=== PATIENT | female | born 1970 | race Caucasian/White ===

== ENCOUNTER 2017-06-27 21:27 | Inpatient (IN) | payer OTHER ==
[~2017-06-27] VITALS: Ht 165.1 cm; Wt 130.6 kg
[~2017-06-27 21:27] MED LIST: ASPI-1052 PO; ATEN25TA7 PO; COZ50 PO; ISOS10TA9 PO; METO25TA PO; OMEP40EC1 PO; PANT40EC PO; SIMV20TA1 PO
[2017-06-27 21:35] VITALS: BP 128/67
--- NOTE | 2017-06-27 21:43 | NUR ---
PT TAKEN TO BED 4
--- NOTE | 2017-06-27 21:45 | NUR ---
46/F CAME IN W C/O 03/14 RLQ PAIN STARTED SINCE 429 TODAY, ACUTE ONSET, INTERMITTENT AND PROGRESIVELY WORSENING. PT DENIES FEVER, N/V/D, PT REPORTS LAST ATE 15 MINS AGO. BS ACTIVE X4, SOFT AND ROUND ABD, +TENDERNESS TO RLQ. DENIES SOB/CP AT THIS TIME. SURGICAL HX: CSEC PMH: FATTY LIVER, DM, ATHEROSCLEROSIS, HTN.
--- NOTE | 2017-06-27 21:56 | NUR ---
Dr. Combs evaluating patient at bedside.
[2017-06-27] MEDS ORDERED: MORPHINE SULFATE 4 MG/ML SYR IVP ONE (22:25)
[2017-06-27 22:27] LABS: HEMATOCRIT 38.6 % (36-48); HEMOGLOBIN 12.7 g/dL (12.0-16.0); MEAN CORPUSCULAR HEMOGLOBIN 30 pg (27-31); MEAN CORPUSCULAR HGB CONC 33 g/dL (33-37); MEAN CORPUSCULAR VOLUME 91 fL (80-94); PLATELET COUNT (AUTO) 275 K/uL (140-450); RED BLOOD CELL COUNT(AUTO) 4.27 MIL/uL (4.20-5.40); RED CELL DISTRIBUTION WIDTH 14.9 % (11.6-13.7); WHITE BLOOD COUNT (AUTO) 12.4 K/uL (4.8-10.8)
[2017-06-27] MEDS ORDERED: ONDANSETRON 4 MG/2 ML VIAL IVP ONE (22:40)
[2017-06-27 22:45] LABS: ANION GAP 12.5 (8-16); CARBON DIOXIDE 29.4 mmol/L (21-32); CREATININE 0.9 mg/dL (0.6-1.3); POTASSIUM 3.9 mmol/L (3.5-5.1)
[2017-06-27 22:45] LABS: APPEARANCE,URINE CLEAR (CLEAR); BILIRUBIN,URINE NEGATIVE (NEGATIVE); BLOOD, URINE NEGATIVE (NEGATIVE); COLOR,URINE YELLOW (YELLOW); LEUKOCYTE ESTERASE ,URINE NEGATIVE (NEGATIVE); NITRITE, URINE NEGATIVE (NEGATIVE); UGLUCOSE NEGATIVE (NEGATIVE)
[2017-06-27 22:51] LABS: ALBUMIN 3.5 g/dL (3.4-5.0); TOTAL BILIRUBIN 0.5 mg/dL (0.0-1.0)
[2017-06-27 22:59] LABS: EOSINOPHILS % (MANUAL) 4 % (0-4); LYMPHOCYTES % (MANUAL) 22 % (20-46); MONOCYTES % (MANUAL) 8 % (5-12)
[2017-06-27 23:38] LABS: RBC,URINE 0-5 (RARE) /HPF (0-5); WBC,URINE 0-5 (RARE) /HPF (0-5)
[2017-06-27] MEDS ORDERED: NACL 0.9% 1,000 ML IV ONE (23:45)
[2017-06-28] MEDS: NACL 0.9% 1,000 ML IV SCH ×3 (00:08→12:26)
[2017-06-28] MEDS ORDERED: MORPHINE SULFATE 2 MG/ML SYR IVP PRN (03:20)
[2017-06-28] MEDS ORDERED: HYDROmorphone 1 MG/ML AMP IVP PRN (03:20)
[2017-06-28] MEDS ORDERED: NACL 0.9% 1,000 ML IV ONE (03:20)
[2017-06-28] MEDS ORDERED: cefTRIAXone 1,000 MG VIAL ONE (03:32)
--- NOTE | 2017-06-28 03:54 | NUR ---
Patient will be admitted to care of DR BALLARD. Admited to MS. Will go to room 106B. Belongings list completed. Report to TYREL MUELLER. PT STABLE DURING TRANSPORT, TRANSPORTED VIA WHEELCHAIR. IV SL. TYREL MUELLER INFORMED TO INFUSE 1000ML NS @100ML/HR PER ER MD CUEVAS ORDER.
--- NOTE | 2017-06-28 04:15 | NUR ---
ADMITTED PT FROM ER VIA REJI. AAOX4. IV TO LEFT AC #20G, PATEN AND INTACT. NO C/O PAIN AT THIS TIME. DISCUSSED PLAN OF CARE. PT VERBALIZE UNDERSTANDING. ORIENTED PT TO ROOM. CALL LIGHT WITHIN REACH. WILL CONTINUE TO MONITOR.
--- NOTE | 2017-06-28 04:17 | NUR ---
RECEIVED ORDER FROM DR. ALCOCER. ORDERS CARRIED OUT.
[2017-06-28 04:20] VITALS: BP 105/70
[2017-06-28] MEDS: metroNIDAZOLE 500 MG/NS PREMIX 100 ML IV SCH ×3 (05:46→17:44)
[2017-06-28 06:44] LABS: BASOPHILS # (AUTO) 0.4 K/uL (0.00-0.22); BASOPHILS % (AUTO) 3.7 % (0.0-2.0); EOSINOPHILS # (AUTO) 0.1 K/uL (0-0.4); EOSINOPHILS % (AUTO) 1.3 % (0.0-4.0); HEMATOCRIT 35.8 % (36-48); HEMOGLOBIN 11.8 g/dL (12.0-16.0); LYMPHOCYTES # (AUTO) 2.1 K/uL (2.5-16.5); LYMPHOCYTES % (AUTO) 19.4 % (20.5-51.1); MEAN CORPUSCULAR HEMOGLOBIN 30 pg (27-31); MEAN CORPUSCULAR HGB CONC 33 g/dL (33-37); MEAN CORPUSCULAR VOLUME 91 fL (80-94); MONOCYTES # (AUTO) 0.9 K/uL (0.8-1.0); MONOCYTES % (AUTO) 8.5 % (1.7-9.3); NEUTROPHILS # (AUTO) 7.3 K/uL (1.8-7.7); NEUTROPHILS % (AUTO) 67.1 % (42.2-75.2); PLATELET COUNT (AUTO) 236 K/uL (140-450); RED BLOOD CELL COUNT(AUTO) 3.93 MIL/uL (4.20-5.40); RED CELL DISTRIBUTION WIDTH 14.9 % (11.6-13.7); WHITE BLOOD COUNT (AUTO) 10.8 K/uL (4.8-10.8)
--- NOTE | 2017-06-28 06:45 | NUR ---
DR. ALCOCER CAME TO SEE PT. ORDERED RIGHT LOWER QUADRANT ULTRASOUND.
[2017-06-28 07:13] LABS: ANION GAP 10.2 (8-16); CARBON DIOXIDE 25.7 mmol/L (21-32); CREATININE 0.8 mg/dL (0.6-1.3); POTASSIUM 3.9 mmol/L (3.5-5.1); TOTAL BILIRUBIN 0.3 mg/dL (0.0-1.0)
--- NOTE | 2017-06-28 07:20 | NUR ---
ENDORSED PT TO DAY SHIFT NURSE. PT IN STABLE CONDITION.
--- NOTE | 2017-06-28 07:21 | NUR ---
RECEIVED REPORT FROM THE NETWORK OPERATIONS SPECIALIST NURSE AT BEDSIDE FOR CONTINUITY OF CARE. PT IS AWAKE AND ORIENTED. INTRODUCED MYSELF AND UPDATED THE BOARD. V/S WITHIN NORMAL RANGE. PT DENIES ANY PAIN AT THIS TIME. PT HAS PSORIASIS AND EXTREMITIES AND ABD. IV ON L AC 2O G NS 100ML. PER NETWORK OPERATIONS SPECIALIST, DR ALCOCER WS HERE SAW RESULTS TO US ABD AND CT SCAN OF ABD/PEL. REQUESTED ANOTHER RLQ US. THIS MORNING RADIOLOGY CALLED TO VERIFY ORDER. PER RADIOLOGIST, NO NEED FOR ANOTHER US. GAVE NUMBER TO RADIOLOGIST TO CALL DR. ALCOCER FOR VERIFICATION OF ORDERS. WILL CONTINUE TO MONITOR PT.
[2017-06-28 08:00] VITALS: BP 121/59
--- NOTE | 2017-06-28 09:00 | NUR ---
RX CALLED QUESTIONING ORDERS FOR ABX FROM DR. ALCOCER AND DR. BALLARD. BOTH ANCEF AND ZOSYN WAS ORDERED ADDITION TO FLAGYL. PER PHARMACY, ANCEF AND ZOSYN COVERAGE IS SAME. PAGED DR. BALLARD. DR. METCALF CALLED. PER , CANCEL ANCEF AND JUST CONTINUE W/ FLAGYL AND ZOSYN. PUT IN ORDERS FOR .
--- NOTE | 2017-06-28 12:15 | NUR ---
DR. METCALF HERE TO SEE PT.
[2017-06-28] MEDS: PIPER/TAZO 3.375GM/D5W PREMIX 50 ML IV SCH ×2 (12:21→17:44)
[2017-06-28 16:00] VITALS: BP 121/46
--- NOTE | 2017-06-28 16:44 | NUR ---
PT WONDERING WHEN U/S WILL BE DONE. CALLED U/S. THEY ARE ALL IN ICU W/ STEMI. WILL NOTIFIED PT. FAMILY VISITING. NO SIGNS OF DISTRESS. WILL CONTINUE TO MONITOR PT.
[2017-06-28] MEDS: ONDANSETRON 4 MG/2 ML VIAL IVP PRN (17:48)
--- NOTE | 2017-06-28 19:20 | NUR ---
ENDORSED PT TO THE MUFFLE WORKER NURSE AT BEDSIDE FOR CONTINUITY OF CARE. PT IS IN STABLE CONDITION.
--- NOTE | 2017-06-28 19:21 | NUR ---
PATIENT IS CURRENTLY RESTING IN BED AWAKE ALERT AND ORIENTED PATIENT STATES,"I FEEL A LITTLE NAUSEATED BUT THE RN NURSE IN THE MORNING JUST GAVE ME SOME MEDICATION TO CALM THE NAUSEA." PATIENT CONTINUES TO BE NPO AND IVF INFUSING WELL IV SITE PATENT.FAMILY AT BEDSIDE WITH HER AT THIS TIME NEEDS MET CALL LIGHT WITHIN REACH WILL CONTINUE TO MONITOR.
[2017-06-28 20:00] VITALS: BP 116/73
[2017-06-28] MEDS: ISOSORBIDE DINITRATE 10 MG TAB PO SCH (20:30)
[2017-06-28] MEDS: SIMVASTATIN 20 MG TAB PO SCH (20:30)
--- NOTE | 2017-06-28 20:30 | NUR ---
I HELD PATIENT BLOOD PRESSURE MEDS TONIGHT B/P IS DECREASED LATEST BLOOD PRESSURE 98/40 HR 82 PATIENT VERBALIZES UNDERSTANDING.
--- NOTE | 2017-06-28 20:35 | NUR ---
PATIENT IS WONDERING IF SHE IS HAVING ANOTHER ULTRASOUND DONE TONIGHT I WILL CHECK THE ORDER AND I WILL CHECK WITH RADIOLOGY AND MD ALCOCER.
--- NOTE | 2017-06-28 20:36 | NUR ---
I CALLED RADIOLOGY AND I SPOKE WITH LUIS AND I EXPLAINED TO HER THAT PATIENT HAS AN ORDER FOR ABD ULTRASOUND TO CHECK HER RIGHT LOWER QUADRANT AND I WAS TOLD IN REPORT BY RN [facility] NURSE THAT WANTED US ABDOMEN TO BE DONE AGAIN BUT HE WANTS TO CHECK SPECIFIC AREA OF THE ABDOMEN WHICH IS THE RIGHT LOWER QUADRANT.ANESTHESIOLOGY TECHNOLOGIST LUIS EXPLAINED TO ME THAT PATIENT ALREADY HAD DONE US ABDOMEN COMPLETE WHICH THEY CHECK ALL THE ABDOMINAL AREA INCLUDING THE RLQ OF THE ABDOMEN AND PLUS PATIENT ALSO HAD CT ABD AND PELVIS DONE ALREADY SHE SAID THERE IS NO NEED TO RECHECK AGAIN.I TOLD LUIS THAT I WILL EXPLAIN TO MD ALCOCER.
--- NOTE | 2017-06-28 20:40 | NUR ---
I CALLED MD ALCOCER HE ANSWERED RIGHT AWAY AND I EXPLAINED TO MD THAT STORE CLERK TOLD ME THAT PATIENT HAD ALREADY US ABDOMEN COMPLETE THAT SCANS THE ENTIRE ABDOMEN AND SHE ALSO HAD CT ABD AND PELVIS AND ACCORDING TO THE RADIOLOGIST PATIENT DOESN'T NEED TO HAVE THE US ABDOMEN TO CHECK FOR RLQ ABD REPEATED.MD ALCOCER AWARE AND SAID THAT'S FINE IF SHE DOESN'T NEED IT HE SAID THEN DON'T DO IT.MD ALCOCER SAID THEN JUST CONTINUE TO OBSERVE THE PATIENT TONIGHT.I ALSO INFORMED MD ALCOCER THAT PATIENT CONTINUES TO BE NAUSEATED AND MD ALCOCER SAID TO CONTINUE TO KEEP THE PATIENT NPO.
--- NOTE | 2017-06-28 20:41 | NUR ---
PATIENT WAS MADE AWARE THAT SHE DOESN'T NEED TO HAVE A REPEATED US ABDOMEN AND MD ALCOCER IS AWARE BUT SHE WILL CONTINUE TO BE NPO SHE CANNOT DRINK OR EAT ANYTHING FOR NOW BUT I HAVE TO OBSERVE HER ORDERED BY MD ALCOCER. PATIENT VERBALIZES UNDERSTANDING.PATIENT IS AWARE THAT WE ARE GIVING HER ANTIBIOTICS AND ALSO CHECKING HER VITAL SIGNS AND IF SHE FEELS NAUSEATED AND ITS TIME WE CAN GIVE HER SOME ZOFRAN ANTIEMETIC INDICATED PATIENT VERBALIZES UNDERSTANDING.
--- NOTE | 2017-06-28 22:30 | NUR ---
PATIENT IS CURRENTLY ASLEEP SNORING.WILL CONTINUE TO MONITOR CALL LIGHT WITHIN REACH.
[2017-06-29] MEDS: PIPER/TAZO 3.375GM/D5W PREMIX 50 ML IV SCH ×4 (00:10→18:28)
[2017-06-29 00:33] VITALS: BP 134/88
--- NOTE | 2017-06-29 00:33 | NUR ---
PATIENT IS CURRENTLY RESTING IN BED SLEEPING NO PAIN OR DISCOMFORT NOTED NO N/V NOTED.IVF INFUSING WELL IV SITE PATENT ERVIN FORTUNE WILL GIVE ANTIBIOTICS ORDERED.CALL LIGHT WITHIN REACH.
[2017-06-29] MEDS: metroNIDAZOLE 500 MG/NS PREMIX 100 ML IV SCH ×4 (00:41→18:29)
--- NOTE | 2017-06-29 03:05 | NUR ---
PATIENT IS CURRENTLY RESTING IN BED IN NO DISTRESS WILL CONTINUE TO MONITOR.IVF INFUSING WELL IV SITE PATENT.CALL LIGHT WITHIN REACH.
--- NOTE | 2017-06-29 05:02 | NUR ---
PATIENT CONTINUES TO SLEEP COMFORTABLY IN BED NO DISTRESS IVF INFUSING WELL IV SITE PATENT WILL CONTINUE TO MONITOR.
--- NOTE | 2017-06-29 07:40 | NUR ---
PT RECEIVED IN BED AWAKE ALERT AND ORIENTED X4. PT IS ABLE TO MAKE NEEDS KNOWN WELL AND IS RESPONSIVE TO VERBAL COMMAND APPROPRIATELY. PT DENIES ANY ABD PAIN AT PRESENT. NO RESP DISTRESS OR N/V. IVF INFUSING ORDERED. PT IS NPO AT THIS TIME. V/S STABLE.
--- NOTE | 2017-06-29 07:44 | NUR ---
PATIENT STABLE REPORT ENDORSED TO ERVIN OROZCO AT BEDSIDE HE WILL RESUME CARE OF THE PATIENT. Addendum: 06/29/17 at 0746 by Alison Bhatia LVN REPORT ENDORSED TO ERVIN OROZCO.
--- NOTE | 2017-06-29 08:07 | NUR ---
PATIENT HAS BEEN SCREENED AND CATEGORIZED HIGH NUTRITION RISK. PATIENT WILL BE SEEN WITHIN 1-2 DAYS OF ADMISSION. 06/28/17 - 06/29/17 RAUL NAVA MBA, RD
[2017-06-29 08:24] VITALS: BP 138/78
[2017-06-29] MEDS ORDERED: PANTOPRAZOLE 40 MG TABEC PO SCH (09:00)
[2017-06-29] MEDS ORDERED: ASPIRIN 325 MG TABEC PO SCH (09:00)
[2017-06-29] MEDS ORDERED: METOPROLOL 25 MG TAB PO SCH (09:00)
[2017-06-29] MEDS: NACL 0.9% 1,000 ML IV SCH ×2 (09:18→19:18)
--- NOTE | 2017-06-29 09:34 | NUR ---
06/29/17 RD INITIAL ASSESSMENT COMPLETED PLEASE REFER TO NUTRITION ASSESSMENT UNDER CARE ACTIVITY FOR ESTIMATED NUTRITIONAL NEEDS. RD RECOMMENDATIONS: 1- RECOMMEND CONTINUE NPO DIET. 2- WHEN MEDICALLY CLEARED, SUGGEST 75G CCHO CARDIAC DIET 3- EDUCATE PT ON DIET WHEN ORDERED BY MD &/OR ON FOLLOW UP 4- F/U 3-5 DAYS; MODERATE RISK RAUL NUR MBA, RD
[2017-06-29] MEDS: ISOSORBIDE DINITRATE 10 MG TAB PO SCH ×2 (10:02→21:00)
--- NOTE | 2017-06-29 13:00 | NUR ---
PT UP SITTING IN BED COMFORTABLY. COMPLAINT OF HEADACHE DUE TO ONE OF THE AM MEDS. ORFERS FOR TYLENOL OBTAINED FROM DR METCALF AND GIVEN AT 1252. PT REMAINS NPO. NO ACUTE DISTRESS OR ANY STATUS CHANGES NOTED. PT APPEARS TO BE IN GOOD CONDITION.
[2017-06-29] MEDS: ONDANSETRON 4 MG/2 ML VIAL IVP PRN (13:22)
[2017-06-29] MEDS ORDERED: ACETAMINOPHEN 650 MG/20.3 ML UDC PO PRN (13:25)
[2017-06-29 15:50] LABS: BASOPHILS # (AUTO) 0.1 K/uL (0.00-0.22); BASOPHILS % (AUTO) 1.2 % (0.0-2.0); EOSINOPHILS # (AUTO) 0.1 K/uL (0-0.4); EOSINOPHILS % (AUTO) 0.8 % (0.0-4.0); LYMPHOCYTES # (AUTO) 1.8 K/uL (2.5-16.5); LYMPHOCYTES % (AUTO) 14.3 % (20.5-51.1); MEAN CORPUSCULAR HEMOGLOBIN 30 pg (27-31); MEAN CORPUSCULAR HGB CONC 33 g/dL (33-37); MEAN CORPUSCULAR VOLUME 89 fL (80-94); MONOCYTES # (AUTO) 0.5 K/uL (0.8-1.0); MONOCYTES % (AUTO) 4.4 % (1.7-9.3); NEUTROPHILS # (AUTO) 9.8 K/uL (1.8-7.7); NEUTROPHILS % (AUTO) 79.3 % (42.2-75.2); PLATELET COUNT (AUTO) 271 K/uL (140-450); RED BLOOD CELL COUNT(AUTO) 4.06 MIL/uL (4.20-5.40); RED CELL DISTRIBUTION WIDTH 14.6 % (11.6-13.7); WHITE BLOOD COUNT (AUTO) 12.3 K/uL (4.8-10.8)
[2017-06-29 16:17] LABS: ALBUMIN 3.2 g/dL (3.4-5.0); ANION GAP 9.8 (8-16); CARBON DIOXIDE 29.9 mmol/L (21-32); CREATININE 0.8 mg/dL (0.6-1.3); POTASSIUM 3.7 mmol/L (3.5-5.1)
[2017-06-29 16:26] VITALS: BP 126/78
--- NOTE | 2017-06-29 16:35 | NUR ---
PT IN BED TALKING TO SOME VISITORS AT THE BED SITE. NO PAIN OR SOB. V/S STABLE.
--- NOTE | 2017-06-29 19:50 | NUR ---
PATIENT IS AWARE THAT SHE WILL BE GOING HOME TONIGHT AND IV SALINE LOCK HAS BEEN DISCONTINUED. FAMILY AT BEDSIDE.
[2017-06-29 20:00] VITALS: BP 126/64
--- NOTE | 2017-06-29 20:00 | NUR ---
Patient's Plan of Care was discussed and reviewed with MEDICAL DELIVERY DRIVER: JOSH PRUETT
--- NOTE | 2017-06-29 20:46 | NUR ---
I SPOKE WITH Jessica STRINGER AND I ASKED HER IF SHE WOULD LIKE TO CONTINUE PATIENTS HOME MEDS THEN Jessica STRINGER SAID YES SURE BUT I WAS READING PATIENT'S HOME MED LIST TO HER.Jessica STRINGER SAID I WILL DO THE RECONCILIATION IN MY COMPUTER GIVE ME A FEW MINUTES.NO NEW ORDERS.
[2017-06-29] MEDS: SIMVASTATIN 20 MG TAB PO SCH (21:07)
--- NOTE | 2017-06-29 22:08 | NUR ---
PATIENT WAS GIVEN HER DISCHARGE INSTRUCTIONS AND PATIENT VERBALIZES UNDERSTANDING.ID BANDS WERE REMOVED AND DISCARDED APPROPRIATELY AND FAMILY WILL BE TAKING THE PATIENT HOME.PATIENT WHEELED OUT IN WHEEL CHAIR TO CAR BY DALE MARTÍNEZ.
--- NOTE | 2017-07-02 15:07 | NUR ---
CM NOTE ER DR'S NOTES, H&P, PROGRESS NOTES, DISCHARGE SUMMARY FAXED TO [facility] [phone] CM DEAN PH# [phone] CM NAVA PH# [phone]
== END 2017-06-29 22:10 | disposition home or self-care (01) | DRG 351 ==
LOC: MED 21:27 → MTU 06-28 03:24
PROVIDERS: ADMIT Hospitalist; ATTEND Hospitalist
DX: M25.559 Pain in unspecified hip (principal); I10 Essential (primary) hypertension; Z68.42 Body mass index [BMI] 45.0-49.9, adult; E11.9 Type 2 diabetes mellitus without complications; D72.829 Elevated white blood cell count, unspecified; I25.10 Atherosclerotic heart disease of native coronary artery without angina pectoris; L40.9 Psoriasis, unspecified; E66.01 Morbid (severe) obesity due to excess calories; Z98.891 History of uterine scar from previous surgery; Z79.899 Other long term (current) drug therapy
CPT/HCPCS: 36415; 76700; 76705; 80053; 81001; 81025; 82150; 82948; 83605; 83690; 84703; 85025; 87040; 87081; 87086; 96374; 96375; 99285; J0696; J1170; J2270; J2405; J2543; J3490; J7030; J7060; Q0092; Q9967

== ENCOUNTER 2017-10-11 00:05 | Emergency (ER) | payer OTHER ==
[~2017-10-11] VITALS: Ht 165.1 cm; Wt 130.2 kg
[~2017-10-11 00:05] MED LIST changes: -ATEN25TA7 PO; -PANT40EC PO
[2017-10-11 00:19] VITALS: BP 129/71
--- NOTE | 2017-10-11 00:27 | NUR ---
PT.AMBULATED TO ER [facility]
--- NOTE | 2017-10-11 00:33 | NUR ---
FLU AND STREP THROAT SWAB COLLECTED.
--- NOTE | 2017-10-11 00:54 | NUR ---
PT EVAL BY TANNER CALLAHAN
[2017-10-11] MEDS ORDERED: methylPREDNISolone SS 125 MG/2 ML VIAL IM ONE (01:10)
--- NOTE | 2017-10-11 01:32 | NUR ---
47Y F BIB FAMILY C/O DIFFICULTY BREATHING X 3 DAYS. PT. STATES COUGH AND COULDN'T CATCH BREATH, NOT RELIEVED BY INHALER. HX. HTN, DM, HEART DISEASE (PT. STATES ARTERY VALVE CLOG)
--- NOTE | 2017-10-11 01:49 | NUR ---
PT LEFT FOR RADIOLOGY WITH LACE FINISHERMALENA WATKINS
--- NOTE | 2017-10-11 02:03 | NUR ---
PT RETURN FROM RADIOLOGY
[2017-10-11 02:51] VITALS: BP 122/69
--- NOTE | 2017-10-11 02:51 | NUR ---
Patient discharged with v/s stable. Written and verbal after care instructions given and explained. Patient alert, oriented and verbalized understanding of instructions. Ambulatory with steady gait. All questions addressed prior to discharge. ID band removed. Patient advised to follow up with PMD. Rx of PREDNISONE 50MG given. Patient educated on indication of medication including possible reaction and side effects. Opportunity to ask questions provided and answered.
== END 2017-10-11 02:51 | disposition home or self-care (01) ==
LOC: MED 00:05
DX: J04.0 Acute laryngitis (principal); J45.909 Unspecified asthma, uncomplicated; E11.9 Type 2 diabetes mellitus without complications; I10 Essential (primary) hypertension
CPT/HCPCS: 36415; 70360; 70490; 71045; 87081; 87804; 96372; 99285; J2930

== ENCOUNTER 2017-11-04 14:30 | Emergency (ER) | payer OTHER ==
[~2017-11-04] VITALS: Ht 167.6 cm; Wt 131.1 kg
[2017-11-04 14:42] VITALS: BP 128/75
[2017-11-04] MEDS ORDERED: METF500T PO (14:55)
[2017-11-04] MEDS ORDERED: ATEN25TA7 PO (14:55)
[2017-11-04] MEDS ORDERED: MECLIZINE 25 MG TAB PO ONE (15:20)
[2017-11-04 17:20] VITALS: BP 116/70
== END 2017-11-04 17:24 | disposition home or self-care (01) ==
LOC: MED 14:30
DX: H81.10 Benign paroxysmal vertigo, unspecified ear (principal); J45.909 Unspecified asthma, uncomplicated; E11.9 Type 2 diabetes mellitus without complications; I10 Essential (primary) hypertension; Z79.84 Long term (current) use of oral hypoglycemic drugs; Z79.899 Other long term (current) drug therapy
CPT/HCPCS: 70450; 81025; 82948; 93005; 99284; J8597

== ENCOUNTER 2019-08-26 10:51 | Emergency (ER) | payer OTHER ==
[~2019-08-26] VITALS: Ht 165.1 cm; Wt 129.3 kg
[~2019-08-26 10:51] MED LIST changes: +ATEN25TA7 PO; -COZ50 PO; +METF500T PO; -METO25TA PO; -OMEP40EC1 PO; +OMEP40EC24 PO
[2019-08-26 11:02] VITALS: BP 128/77
--- NOTE | 2019-08-26 11:05 | NUR ---
TO ED03, REPORT TO ERVIN ESPINOZA
--- NOTE | 2019-08-26 11:15 | NUR ---
PT C/O RT SIDED THROBBING HEADACHE WITH VISION CHANGES, DIZZINESS SINCE YESTERDAY. DENIES N/V OR SOB. PATIENT STATES PAIN OF 8/10 AT THIS TIME; VSS; PATIENT POSITIONED FOR COMFORT; HOB ELEVATED; BEDRAILS UP X1; BED DOWN. ER MD MADE AWARE OF PT STATUS. PT IS ON MONITOR AND WILL CONTINUE MONITOR HER VITAL SIGNS.
[2019-08-26] MEDS ORDERED: NACL 0.9% 500 ML IV ONE (11:45)
[2019-08-26] MEDS ORDERED: diphenhydrAMINE 50 MG/ML VIAL IVP ONE (11:45)
[2019-08-26] MEDS ORDERED: MECLIZINE 25 MG TAB PO ONE (11:45)
[2019-08-26] MEDS ORDERED: ONDANSETRON 4 MG/2 ML VIAL IVP ONE (11:45)
[2019-08-26] MEDS ORDERED: LORazepam 2 MG/ML VIAL IVP ONE (11:45)
[2019-08-26 12:43] LABS: BASOPHILS # (AUTO) 0.1 K/uL (0.00-0.22); BASOPHILS % (AUTO) 0.8 % (0.0-2.0); EOSINOPHILS # (AUTO) 0.1 K/uL (0-0.4); EOSINOPHILS % (AUTO) 1.3 % (0.0-4.0); HEMATOCRIT 40.3 % (36-48); HEMOGLOBIN 12.9 g/dL (12.0-16.0); LYMPHOCYTES # (AUTO) 2.7 K/uL (2.5-16.5); LYMPHOCYTES % (AUTO) 24.3 % (20.5-51.1); MEAN CORPUSCULAR HEMOGLOBIN 30 pg (27-31); MEAN CORPUSCULAR HGB CONC 32 g/dL (33-37); MONOCYTES # (AUTO) 0.8 K/uL (0.8-1.0); NEUTROPHILS # (AUTO) 7.4 K/uL (1.8-7.7); NEUTROPHILS % (AUTO) 66.6 % (42.2-75.2); PLATELET COUNT (AUTO) 289 K/uL (140-450); RED BLOOD CELL COUNT(AUTO) 4.33 MIL/uL (4.20-5.40); RED CELL DISTRIBUTION WIDTH 14.5 % (11.6-13.7); WHITE BLOOD COUNT (AUTO) 11.1 K/uL (4.8-10.8)
--- NOTE | 2019-08-26 12:54 | NUR ---
pt is resting in the bed. family member is at bedside. pt is on monitor and will continue to monitoring her vital signs.
[2019-08-26 13:13] LABS: ANION GAP 14.2 (8-16); CARBON DIOXIDE 26.6 mmol/L (21-32); CREATININE 0.7 mg/dL (0.6-1.3); POTASSIUM 3.8 mmol/L (3.5-5.1)
[2019-08-26 13:19] LABS: ALBUMIN 3.6 g/dL (3.4-5.0); TOTAL BILIRUBIN 0.4 mg/dL (0.0-1.0)
[2019-08-26] MEDS ORDERED: KETOROLAC 30 MG/ML VIAL IVP ONE (14:05)
[2019-08-26 14:42] VITALS: BP 115/64
--- NOTE | 2019-08-26 14:42 | NUR ---
Patient discharged with v/s stable. Written and verbal after care instructions given and explained. Patient alert, oriented and verbalized understanding of instructions. Ambulatory with steady gait. All questions addressed prior to discharge. ID band removed. Patient advised to follow up with PMD. Rx of ANTIVERT given, OTC BENADRYL INSTRUCTED TO GET. Patient educated on indication of medication including possible reaction and side effects. Opportunity to ask questions provided and answered.
== END 2019-08-26 14:42 | disposition home or self-care (01) ==
LOC: MED 10:51
DX: H81.10 Benign paroxysmal vertigo, unspecified ear (principal); J45.909 Unspecified asthma, uncomplicated; I10 Essential (primary) hypertension; Z86.79 Personal history of other diseases of the circulatory system; Z79.899 Other long term (current) drug therapy; Z79.84 Long term (current) use of oral hypoglycemic drugs
CPT/HCPCS: 36415; 70450; 80053; 82948; 84484; 85025; 96361; 96374; 96375; 99284; J1200; J1885; J2060; J2405; J7030; J8597

== ENCOUNTER 2020-07-08 07:24 | Emergency (ER) | payer OTHER ==
[~2020-07-08] VITALS: Ht 165.1 cm; Wt 130.6 kg
[2020-07-08 07:34] VITALS: BP 114/70
--- NOTE | 2020-07-08 07:42 | NUR ---
PT AMBULATED TO BED 8.
--- NOTE | 2020-07-08 07:49 | NUR ---
Patient being evaluated by DR CARLOS at bedside.
--- NOTE | 2020-07-08 07:56 | NUR ---
NO NURSING INTERVENTIONS NEEDED.
[2020-07-08 08:11] VITALS: BP 114/70
--- NOTE | 2020-07-08 08:11 | NUR ---
Patient discharged with v/s stable. Written and verbal after care instructions given and explained. Patient alert, oriented and verbalized understanding of instructions. Ambulatory with steady gait. All questions addressed prior to discharge. ID band removed. Patient advised to follow up with PMD. Rx of PREDNISONE, CORICIDIN given. Patient educated on indication of medication including possible reaction and side effects. Opportunity to ask questions provided and answered.
== END 2020-07-08 08:11 | disposition home or self-care (01) ==
LOC: MED 07:24
DX: J06.9 Acute upper respiratory infection, unspecified (principal); R05 Cough; E11.9 Type 2 diabetes mellitus without complications; I10 Essential (primary) hypertension; I51.89 Other ill-defined heart diseases; J45.909 Unspecified asthma, uncomplicated; Z98.890 Other specified postprocedural states; Z79.899 Other long term (current) drug therapy
CPT/HCPCS: 99283

== ENCOUNTER 2023-02-08 15:53 | Emergency (ER) | payer OTHER ==
[~2023-02-08] VITALS: Ht 167.6 cm; Wt 110.7 kg
[~2023-02-08 15:53] MED LIST changes: +METF-346 PO; -METF500T PO; +SIMV-372 PO; -SIMV20TA1 PO
[2023-02-08 16:06] VITALS: BP 127/63; PULSE 88; RESP 18; TEMP 98.1; O2SAT 98
[2023-02-08 16:33] VITALS: O2SAT 98
--- NOTE | 2023-02-08 16:37 | NUR ---
PATIENT PRESENTS TO ED WITH BLOOD BRIGHT RED AND DARK RED IN STOOL FROM RECTUM IRRITATION. PT STATES SHE HAS HAD THIS ISSUE FOR 3 DAYS. PT PT STATES SHE HAS HAD NAUSEA AND DIARREHA BUT DENIES VOMITING; PTS ANAL AREA IS RED IN COLOR AND HEMMOROID HAS OCCURED SKIN IS PINK/WARM/DRY; AAOX4 WITH EVEN AND STEADY GAIT; LUNGS CLEAR BL; HR EVEN AND REGULAR; PT DENIES ANY FEVER, CP, SOB, OR COUGH AT THIS TIME; PATIENT STATES PAIN OF 10/10 AT THIS TIME; VSS; PATIENT POSITIONED FOR COMFORT; HOB ELEVATED; BEDRAILS UP X2; BED DOWN. ER MD MADE AWARE OF PT STATUS. PMHX DM HTN
--- NOTE | 2023-02-08 16:48 | NUR ---
AT PERFORMING STOOL OB. DOCTOR INFORMED PT THAT STOOL WAS OB NEGATIVE. HE INFORMED HER THAT HE WOULD BE ORDERING BLOOD WORK.
--- NOTE | 2023-02-08 17:02 | NUR ---
LAB TO DRAW PT. NO DISTRESS NOTED. CALL LIGHT WITH IN REACH.
[2023-02-08] MEDS ORDERED: HYDR-2734 TP (17:33)
[2023-02-08 17:52] LABS: BASOPHILS # (AUTO) 0.1 K/uL (0.00-0.22); BASOPHILS % (AUTO) 0.5 % (0.0-2.0); EOSINOPHILS # (AUTO) 0.4 K/uL (0-0.4); EOSINOPHILS % (AUTO) 3.8 % (0.0-4.0); HEMATOCRIT 38.6 % (36-48); HEMOGLOBIN 12.9 g/dL (12.0-16.0); LYMPHOCYTES # (AUTO) 2.6 K/uL (2.5-16.5); MEAN CORPUSCULAR HEMOGLOBIN 31 pg (27-31); MEAN CORPUSCULAR HGB CONC 33 g/dL (33-37); MEAN CORPUSCULAR VOLUME 91.7 fL (80-94); MONOCYTES % (AUTO) 9.9 % (1.7-9.3); NEUTROPHILS # (AUTO) 6.3 K/uL (1.8-7.7); NEUTROPHILS % (AUTO) 60.8 % (42.2-75.2); PLATELET COUNT (AUTO) 260 K/uL (140-450); RED BLOOD CELL COUNT(AUTO) 4.21 MIL/uL (4.20-5.40); RED CELL DISTRIBUTION WIDTH 14.6 % (11.6-13.7); WHITE BLOOD COUNT (AUTO) 10.4 K/uL (4.8-10.8)
--- NOTE | 2023-02-08 18:12 | NUR ---
Ryan castañeda in ED - 02/08/23 at 1813 by GUSTAVO KODAK AT TO TRANSPORT PT TO [facility]
--- NOTE | 2023-02-08 18:12 | NUR ---
[facility] AT BS TO TRANSPORT PT TO [facility]
[2023-02-08] MEDS ORDERED: DOCU-299 PO (18:15)
[2023-02-08] MEDS ORDERED: MIRABULK PO (18:15)
[2023-02-08] MEDS ORDERED: HYDR25SU91 RC (18:15)
--- NOTE | 2023-02-08 18:26 | NUR ---
Patient discharged with v/s stable. Written and verbal after care instructions given and explained. Patient verbalized understanding. Ambulatory with steady gait. All questions addressed prior to discharge. Advised to follow up with PMD.
--- NOTE | 2023-02-08 18:27 | NUR ---
The patient's care was reviewed and supervised by Ly Daigle, RN, RN.
[2023-02-08 18:29] VITALS: BP 105/56; PULSE 62; RESP 18; TEMP 97.3; O2SAT 98
== END 2023-02-08 18:26 | disposition home or self-care (01) ==
LOC: MED 15:53
DX: K64.8 Other hemorrhoids (principal); K62.5 Hemorrhage of anus and rectum; J45.909 Unspecified asthma, uncomplicated; E11.9 Type 2 diabetes mellitus without complications; I10 Essential (primary) hypertension; L40.9 Psoriasis, unspecified; Z79.899 Other long term (current) drug therapy; Z79.84 Long term (current) use of oral hypoglycemic drugs
CPT/HCPCS: 36415; 85025; 99283